=== PATIENT | male | born 1955 | race Caucasian/White ===

== ENCOUNTER 2018-02-16 22:46 | Emergency (ER) | payer SELFPAY ==
[~2018-02-16] VITALS: Ht 167.6 cm; Wt 58.0 kg
[2018-02-17 07:39] LABS: BASOPHILS % 1.1 % (0.0-2.0); EOSINOPHILS % 0.1 % (0.0-5.0); HEMATOCRIT. 31.1 % (42.0-52.0); HEMOGLOBIN. 10.2 g/dL (14.0-18.0); LYMPHOCYTES % 8.6 % (20.0-50.0); MEAN CORPUSCULAR HEMOGLOBIN 26.6 pg (28.0-32.0); MEAN CORPUSCULAR VOLUME 80.8 fL (80.0-94.0); MEAN PLATELET VOLUME 7.1 fl (7.4-10.4); MONOCYTES % 9.1 % (2.0-8.0); NEUTROPHILS % 81.1 % (40.0-76.0); PLATELET 620 x1000/uL (130-400); RED BLOOD CELL COUNT 3.84 mill/uL (4.7-6.1); RED CELL DISTRIBUTION WIDTH 14.9 % (11.6-14.6)
[2018-02-17 07:45] LABS: CLARITY URINE CLEAR (CLEAR); COLOR URINE YELLOW (YELLOW); KETONES URINE TRACE (NEGATIVE); LEUKOCYTE ESTERASE URINE NEGATIVE (NEGATIVE); NITRITE URINE NEGATIVE (NEGATIVE); OCCULT BLOOD URINE NEGATIVE (NEGATIVE); PROTEIN URINE NEGATIVE (NEGATIVE); SPECIFIC GRAVITY URINE 1.024 (1.005-1.030)
[2018-02-17 07:47] LABS: CHLORIDE 94 mEq/L (98-107); INR 1.2; PROTHROMBIN TIME 11.9 sec (9.1-11.1)
[2018-02-17] MEDS ORDERED: IOHEXOL-350 100 ML BOTTLE ONE (09:50)
[2018-02-17 11:25] VITALS: BP 124/79
== END 2018-02-17 11:40 | disposition short-term general hospital (02) ==
LOC: ER 22:46
DX: R19.09 Other intra-abdominal and pelvic swelling, mass and lump (principal); K59.00 Constipation, unspecified
CPT/HCPCS: 36415; 71045; 74177; 80053; 81003; 83690; 85025; 85610; 99285; Q9967

== ENCOUNTER 2018-11-16 09:43 | Emergency (ER) | payer MEDICAID ==
[~2018-11-16] VITALS: Ht 167.6 cm; Wt 59.0 kg
[2018-11-16 11:33] LABS: BASOPHILS % 0.5 % (0.0-2.0); HEMATOCRIT. 23.4 % (42.0-52.0); HEMOGLOBIN. 8.1 g/dL (14.0-18.0); LYMPHOCYTES % 10.5 % (20.0-50.0); MEAN CORPUSCULAR HEMOGLOBIN 35.2 pg (28.0-32.0); MEAN CORPUSCULAR VOLUME 101.9 fL (80.0-94.0); MEAN PLATELET VOLUME 7.6 fl (7.4-10.4); MONOCYTES % 13.7 % (2.0-8.0); NEUTROPHILS % 75.3 % (40.0-76.0); PLATELET 231 x1000/uL (130-400); RED CELL DISTRIBUTION WIDTH 24.2 % (11.6-14.6)
[2018-11-16 11:34] LABS: PROTHROMBIN TIME 10.7 sec (9.6-11.0)
[2018-11-16 11:35] LABS: CHLORIDE 106 mEq/L (98-107)
[2018-11-16 12:40] LABS: PLATELET ESTIMATE NORMAL
[2018-11-16 14:00] VITALS: BP 108/64
== END 2018-11-16 14:47 | disposition home or self-care (01) ==
LOC: ER 09:43 → CANBEDREQ 16:19
DX: D53.9 Nutritional anemia, unspecified (principal); C76.2 Malignant neoplasm of abdomen; Z92.21 Personal history of antineoplastic chemotherapy; R03.0 Elevated blood-pressure reading, without diagnosis of hypertension
CPT/HCPCS: 36415; 71045; 86850; 86900; 93005; 99284

== ENCOUNTER 2025-03-15 14:10 | Inpatient (IN) | payer SELFPAY ==
[~2025-03-15] VITALS: Ht 167.6 cm; Wt 69.4 kg
[2025-03-15 14:17] VITALS: O2SAT 97
[2025-03-15] MEDS ORDERED: MORPHINE SULFATE 4 MG/ML INJ (FOR IV/IM USE) IV ONE (15:30)
[2025-03-15 16:20] LABS: CREATININE 0.7 mg/dL (0.6-1.3)
[2025-03-15 16:21] LABS: UREA NITROGEN BLOOD 9 mg/dL (9-23)
[2025-03-15 16:23] LABS: ASPARTATE AMINOTRANSFERASE 18 IU/L (<34); BILIRUBIN TOTAL 0.4 mg/dL (0.1-1.0); INR 1.2; PROTEIN TOTAL 4.8 g/dL (6.0-8.3)
[2025-03-15 16:49] LABS: BASOPHILS % 0.3 % (0.0-2.0); EOSINOPHILS % 0.8 % (0.0-5.0); HEMATOCRIT. 23.0 % (42.0-52.0); HEMOGLOBIN. 7.4 g/dL (14.0-18.0); LYMPHOCYTES % 7.6 % (20.0-50.0); MEAN PLATELET VOLUME 6.5 fl (7.4-10.4); MONOCYTES % 9.4 % (2.0-8.0); NEUTROPHILS % 81.9 % (40.0-76.0); PLATELET 366 x1000/uL (130-400); RED BLOOD CELL COUNT 2.87 mill/uL (4.7-6.1); RED CELL DISTRIBUTION WIDTH 17.3 % (11.6-14.6)
[2025-03-15 18:31] LABS: CREATININE 0.6 mg/dL (0.6-1.3); UREA NITROGEN BLOOD 7 mg/dL (9-23)
[2025-03-15] MEDS: SODIUM CHLORIDE 0.9% 1,000 ML IV ONE ×2 (18:49→22:56)
[2025-03-15] MEDS: MORPHINE SULFATE 4 MG/ML INJ (FOR IV/IM USE) IV NR (18:57)
[2025-03-15] MEDS: IOHEXOL-300 100 ML BOTTLE ONE (23:16)
[2025-03-16] MEDS ORDERED: ACETAMINOPHEN 325MG TABLET PO PRN (01:00)
[2025-03-16] MEDS ORDERED: CLONIDINE 0.1MG TABLET PO PRN (01:00)
[2025-03-16] MEDS ORDERED: IPRATROPIUM/ALBUTEROL 0.5-3(2.5)MG/3ML NEB HHN PRN (01:00)
[2025-03-16] MEDS ORDERED: ONDANSETRON HCL 4MG/2ML INJ IV PRN (01:00)
[2025-03-16] MEDS ORDERED: DOCUSATE SODIUM 100MG CAPSULE PO PRN (01:00)
[2025-03-16 01:39] VITALS: BP 85/58; PULSE 75; RESP 18; TEMP 36.3068
[2025-03-16] MEDS ORDERED: SODIUM CHLORIDE 0.9% 1,000 ML IV SCH (02:30)
[2025-03-16 02:31] LABS: CREATININE 0.6 mg/dL (0.6-1.3); UREA NITROGEN BLOOD 8 mg/dL (9-23)
[2025-03-16 04:00] VITALS: BP 107/68; PULSE 93; RESP 18; TEMP 36.3; O2SAT 93
[2025-03-16 04:26] LABS: HEPATITIS C AB NON REACTIVE (Neg) (Negative)
[2025-03-16 08:00] VITALS: BP 90/56; PULSE 94; RESP 17; TEMP 35.6; O2SAT 99
[2025-03-16] MEDS: MIDODRINE HCL 5MG TABLET PO SCH (09:04)
[2025-03-16] MEDS: PANTOPRAZOLE SODIUM 40 MG/VIAL IV SCH (09:05)
[2025-03-16] MEDS: ENOXAPARIN 40MG/0.4ML SYR SUBCUT SCH (09:05)
[2025-03-16 12:10] VITALS: BP 144/78; PULSE 74; RESP 20; TEMP 37; O2SAT 98
[2025-03-16] MEDS: ACETAMINOPHEN 325MG TABLET PO PRN (12:27)
[2025-03-16 16:30] VITALS: BP 90/62; PULSE 76; RESP 18; TEMP 37; O2SAT 98
[2025-03-16 20:00] VITALS: BP 97/67; PULSE 93; RESP 17; TEMP 36.6; O2SAT 98
[2025-03-16] MEDS: SODIUM CHLORIDE 1000MG TABLET PO SCH (20:53)
[2025-03-17] VITALS: BP 101/62; PULSE 82; RESP 20; TEMP 36.6; O2SAT 98
[2025-03-17 04:00] VITALS: BP 107/69; PULSE 94; RESP 18; TEMP 36.5; O2SAT 99
[2025-03-17 07:24] LABS: BASOPHILS % 0.3 % (0.0-2.0); EOSINOPHILS % 1.0 % (0.0-5.0); HEMATOCRIT. 24.1 % (42.0-52.0); HEMOGLOBIN. 7.7 g/dL (14.0-18.0); LYMPHOCYTES % 9.0 % (20.0-50.0); MEAN PLATELET VOLUME 6.8 fl (7.4-10.4); MONOCYTES % 8.9 % (2.0-8.0); NEUTROPHILS % 80.8 % (40.0-76.0); PLATELET 374 x1000/uL (130-400); RED BLOOD CELL COUNT 3.01 mill/uL (4.7-6.1); RED CELL DISTRIBUTION WIDTH 17.2 % (11.6-14.6)
[2025-03-17 07:37] LABS: CREATININE 0.6 mg/dL (0.6-1.3)
[2025-03-17 07:38] LABS: LDL CHOLESTEROL 58 mg/dL (5-100); PROTEIN TOTAL 4.5 g/dL (6.0-8.3); T4 FREE 0.82 ng/dL (0.89-1.76); TRIGLYCERIDE 107 mg/dL (0-150); UREA NITROGEN BLOOD 6 mg/dL (9-23)
[2025-03-17 07:39] LABS: ASPARTATE AMINOTRANSFERASE 13 IU/L (<34); BILIRUBIN DIRECT 0.3 mg/dL (<=3.0)
[2025-03-17 07:40] LABS: BILIRUBIN TOTAL 0.5 mg/dL (0.1-1.0)
[2025-03-17 08:00] VITALS: BP 94/60; PULSE 86; RESP 18; TEMP 36.6; O2SAT 98
[2025-03-17] MEDS ORDERED: SODI1TAB3 PO (10:56)
[2025-03-17] MEDS ORDERED: MIDO5TAB4 PO (10:56)
[2025-03-17 12:00] VITALS: BP 96/60; PULSE 94; RESP 18; TEMP 36.5; O2SAT 98
[2025-03-17 16:00] VITALS: BP 111/77; PULSE 106; RESP 18; TEMP 36.5; O2SAT 100
[2025-03-17] MEDS: MORPHINE SULFATE 2 MG/ML INJ (NOT FOR IM USE) IV PRN (17:24)
[2025-03-17 20:00] VITALS: BP 118/67; PULSE 90; RESP 18; TEMP 36.5; O2SAT 97
[2025-03-18] VITALS: BP 110/60; PULSE 88; RESP 18; TEMP 36.1; O2SAT 98
[2025-03-18 04:00] VITALS: BP 122/79; PULSE 90; RESP 18; TEMP 36.7; O2SAT 98
[2025-03-18 07:55] LABS: BASOPHILS % 0.5 % (0.0-2.0); EOSINOPHILS % 1.6 % (0.0-5.0); HEMATOCRIT. 22.5 % (42.0-52.0); HEMOGLOBIN. 7.2 g/dL (14.0-18.0); LYMPHOCYTES % 9.1 % (20.0-50.0); MEAN PLATELET VOLUME 6.3 fl (7.4-10.4); MONOCYTES % 8.3 % (2.0-8.0); NEUTROPHILS % 80.5 % (40.0-76.0); PLATELET 365 x1000/uL (130-400); RED BLOOD CELL COUNT 2.82 mill/uL (4.7-6.1); RED CELL DISTRIBUTION WIDTH 17.0 % (11.6-14.6)
[2025-03-18 07:56] LABS: CREATININE 0.6 mg/dL (0.6-1.3)
[2025-03-18 07:57] LABS: UREA NITROGEN BLOOD 7 mg/dL (9-23)
[2025-03-18 08:00] VITALS: BP 96/65; PULSE 98; RESP 18; TEMP 36.7; O2SAT 98
[2025-03-18 11:28] VITALS: BP 101/65; PULSE 85; RESP 14; TEMP 97.8
== END 2025-03-18 12:23 | disposition hospice, home (50) | DRG 343 ==
LOC: ER 14:10 → 7EST 21:25 → EDBEDREQ 21:32 → EDBEDREQTM 21:32 → ENRESERV 23:30 → 8WST 03-16 10:16
PROVIDERS: ADMIT Internal Medicine; ATTEND Internal Medicine
DX: C79.51 Secondary malignant neoplasm of bone (principal); I31.39 Other pericardial effusion (noninflammatory); E22.2 Syndrome of inappropriate secretion of antidiuretic hormone; Z66 Do not resuscitate; C48.0 Malignant neoplasm of retroperitoneum; L89.153 Pressure ulcer of sacral region, stage 3; J90 Pleural effusion, not elsewhere classified; I95.89 Other hypotension; I82.501 Chronic embolism and thrombosis of unspecified deep veins of right lower extremity; Z85.831 Personal history of malignant neoplasm of soft tissue
CPT/HCPCS: 36415; 72170; 73552; 74177; 80048; 80053; 80061; 80076; 82962; 84439; 84443; 85025; 86705; 87340; 93005; 93970; 96374; 96375; 97166; 99285; J1650; J2270; J2405; J2470; J7030; Q9967